=== PATIENT | male | born 1960 | race Caucasian/White ===

== ENCOUNTER 2016-11-30 21:47 | Emergency (ER) | payer OTHER, MEDICARE ==
[~2016-11-30 21:47] MED LIST: ALDACTONE25 MG PO; ASPIRIN EC81 MG PO; CARVEDILOL6.25 MG PO; CENTRAL-VITE H1 EACH PO; ENALAPRIL MALEA10 MG PO; FUROSEMIDE40 MG PO; ISOSORBIDE MONO60 MG PO; LASIX20 MG PO; SIMVASTATIN80 MG PO
== END 2016-11-30 23:30 | disposition home or self-care (01) ==
LOC: ED 21:47
PROC: 0HQBXZZ Repair Right Upper Arm Skin, External Approach (ICD-10-PCS; principal; 2016-11-30)
DX: S41.112A Laceration without foreign body of left upper arm, initial encounter (principal); S80.11XA Contusion of right lower leg, initial encounter; F17.200 Nicotine dependence, unspecified, uncomplicated; I25.2 Old myocardial infarction; V20.4XXA Motorcycle driver injured in collision with pedestrian or animal in traffic accident, initial encounter; Z95.5 Presence of coronary angioplasty implant and graft; Z95.0 Presence of cardiac pacemaker; Z79.82 Long term (current) use of aspirin; Z79.899 Other long term (current) drug therapy
CPT/HCPCS: 12002; 73590; 90471; 90715; 99283

== ENCOUNTER 2020-07-24 09:21 | Emergency (ER) | payer OTHER, MEDICARE ==
[~2020-07-24] VITALS: Ht 170.2 cm; Wt 79.4 kg
[2020-07-24] MEDS ORDERED: ATORVASTATIN CA40 MG PO (09:35)
[2020-07-24] MEDS ORDERED: HYDROCODON-ACE1 EA10 PO (11:03)
[2020-07-24] MEDS ORDERED: VALTREX1000 MG PO (11:03)
== END 2020-07-24 11:10 | disposition home or self-care (01) ==
LOC: ED 09:21
DX: B02.7 Disseminated zoster (principal); I25.2 Old myocardial infarction; Z87.891 Personal history of nicotine dependence; Z79.899 Other long term (current) drug therapy; Z79.82 Long term (current) use of aspirin
CPT/HCPCS: 71046; 80053; 85025; 86694; 86695; 86696; 86703; 99283-25